=== PATIENT | female | born 1945 | race Caucasian/White ===

== ENCOUNTER 2021-03-05 12:57 | Emergency (ER) | payer MEDICARE ==
[~2021-03-05] VITALS: Wt 83.5 kg
[2021-03-06] MEDS ORDERED: PRAVASTATIN SOD80 MG PO (06:14)
[2021-03-06] MEDS ORDERED: VENLAFAXINE H37.5 M5 PO (06:14)
[2021-03-06] MEDS ORDERED: ATENOLOL50 M1 PO (06:14)
[2021-03-06] MEDS ORDERED: AMLODIPINE BESYL5 MG PO (06:14)
[2021-03-06] MEDS ORDERED: CANDESARTAN-HC1 EAC1 PO (06:14)
== END 2021-03-05 14:37 | disposition left against medical advice (07) ==
LOC: ED 12:57
DX: R11.2 Nausea with vomiting, unspecified (principal); R53.1 Weakness; Z53.21 Procedure and treatment not carried out due to patient leaving prior to being seen by health care provider

== ENCOUNTER 2021-03-06 05:07 | Emergency (ER) | payer MEDICARE ==
[~2021-03-06] VITALS: Ht 160 cm; Wt 83.5 kg
[2021-03-06] MEDS ORDERED: CANDESARTAN-HC1 EAC1 PO (06:14)
[2021-03-06] MEDS ORDERED: VENLAFAXINE H37.5 M5 PO (06:14)
[2021-03-06] MEDS ORDERED: AMLODIPINE BESYL5 MG PO (06:14)
[2021-03-06] MEDS ORDERED: PRAVASTATIN SOD80 MG PO (06:14)
[2021-03-06] MEDS ORDERED: ATENOLOL50 M1 PO (06:14)
[2021-03-06 07:12] LABS: HEMATOCRIT 46.1 % (37.0-47.0); MEAN CELL VOLUME 89.2 fl (81.0-99.0); MEAN CORPUSCULAR HGB 30.4 pg (27.0-31.0); MEAN CORPUSCULAR HGB CONC 34.1 g/dl (33.0-37.0); MEAN PLATELET VOLUME 11.3 fl (9.6-12.3); PLATELET COUNT AUTOMATED 386 10*3/uL (130-400); RED BLOOD COUNT 5.17 10*6/uL (4.10-5.10); RED CELL DISTRI WIDTH 13.2 % (0-14.5); WHITE BLOOD COUNT 31.4 10*3/uL (4.8-10.8)
[2021-03-06 07:39] LABS: PLATELET SUFFICIENCY NORMAL (NORMAL); TOTAL CELLS COUNTED 100 #CELLS
[2021-03-06 08:29] LABS: ALBUMIN 3.5 gm/dl (3.1-4.5); CREATININE 2.41 mg/dL (0.55-1.02); POTASSIUM 3.3 mmol/L (3.5-5.1); TOTAL PROTEIN 7.7 gm/dL (6.4-8.2)
== END 2021-03-06 15:20 | disposition short-term general hospital (02) ==
LOC: ED 05:07
PROVIDERS: Emergency Medicine
DX: K31.89 Other diseases of stomach and duodenum (principal); E78.00 Pure hypercholesterolemia, unspecified; Z88.2 Allergy status to sulfonamides; Z79.899 Other long term (current) drug therapy